=== PATIENT | male | born 1970 | race Hispanic/Latino ===

== ENCOUNTER 2018-08-11 06:40 | Day surgery (SDC) | payer MEDICARE ==
[2018-08-10 14:28] VITALS: BMI 26.4
[2018-08-11 07:19] VITALS: BP 130/85; TEMP 98.8
[2018-08-11] MEDS ORDERED: Iopamidol-M 200 41% 20 ML VIAL ONE (10:11)
--- NOTE | 2018-08-11 11:02 | CT ---
LUMBAR SPINE MYELOGRAM AND POST MYELOGRAPHIC CT: HISTORY: Back pain. Radiculopathy. TECHNIQUE: Informed consent was obtained from the patient. The lumbar spine was visualized using fluoroscopic g uidance. The right L1-L2 interlaminar space was localized using fluoroscopy. The overlying skin was prepped and draped in the usual sterile manner. A 1% Lidocaine solution was used to anesthetize the overlying soft tissues. A 22 gauge spinal needle was placed into the subarachnoid space. A total o f 12 mL of Isovue-200M was injected into the subarachnoid space. Spot and overhead images were obtai magy. FINDINGS: T12-L1: Unremarkable. L1-L2: There is minimal facet hypertrophy. The central canal and neural foramina are patent. L2-L3: There is mild disk space height loss and bilateral facet hypertrophy. Minimal central and la teral recess stenosis is seen. The neural foramina are patent. L3-L4: Disk space fusion is seen with surgical hardware of the L3-L4 disk space. Pedicle screws are seen fusing the L3, L4, and L5 vertebral levels. The transpedicular screws are in good position wit hout evidence of loosening seen. L4-L5: Surgical hardware is seen in the intervertebral disk space. Pedicle screws in good position. No evidence of significant central or neural foraminal narrowing seen. There do appear to be some adhesions of the L4 and L5 nerve roots, concerning for intrathecal fibrosi s. L5-S1: The patient has a congenitally partially sacralized L5 vertebral level. The neural foramen a re patent. There are asymmetric degenerative changes in the SI joints with more significant right SI joint osteo phytes and anterior bone spurring, compared to the left. IMPRESSION: L3, L4, and L5 pedicle fusion and disk space fusion at L3-L4 and L4-L5. POS: [facility]
== END 2018-08-11 09:40 | disposition home or self-care (01) ==
LOC: RAD 06:40 → EDSTATUS 08:00 → RAD 09:40
PROVIDERS: ATTEND Neurological Surgery
PROC: B02B1ZZ Computerized Tomography (CT Scan) of Spinal Cord using Low Osmolar Contrast (ICD-10-PCS; principal; 2018-08-11)
DX: M54.16 Radiculopathy, lumbar region (principal); E78.5 Hyperlipidemia, unspecified; Z79.1 Long term (current) use of non-steroidal anti-inflammatories (NSAID); Z79.899 Other long term (current) drug therapy; Z88.5 Allergy status to narcotic agent; Z98.1 Arthrodesis status
CPT/HCPCS: 62304; 72132